=== PATIENT | male | born 1990 | race Two or more races ===

== ENCOUNTER 2020-03-27 04:04 | Emergency (ER) | payer OTHER ==
[~2020-03-27] VITALS: Ht 182.9 cm; Wt 136.0 kg
[2020-03-27 04:08] VITALS: BP 156/78
== END 2020-03-27 04:54 | disposition home or self-care (01) ==
LOC: ER 04:04
DX: Z00.00 Encounter for general adult medical examination without abnormal findings (principal); V49.88XA Car occupant (driver) (passenger) injured in other specified transport accidents, initial encounter; Y93.89 Activity, other specified; Y92.89 Other specified places as the place of occurrence of the external cause; Y99.8 Other external cause status
CPT/HCPCS: 99283